=== PATIENT | male | born 1975 | race Caucasian/White ===

== ENCOUNTER 2018-02-08 15:03 | Emergency (ER) | payer OTHER ==
[~2018-02-08] VITALS: Ht 172.7 cm; Wt 94.8 kg
[~2018-02-08 15:03] MED LIST: VISTARIL 25 MG25 M1 PO
[2018-02-08] MEDS ORDERED: ARIPIPRAZOLE2 MG PO (15:13)
[2018-02-08] MEDS ORDERED: TRAZODONE HCL50 MG PO (15:13)
[2018-02-08] MEDS ORDERED: LAMICTAL100 MG PO (15:13)
[2018-02-08] MEDS ORDERED: FISH OIL 1,001000 M2 PO (15:13)
[2018-02-08 15:24] LABS: ABSOLUTE BASOPHILS 0.1 thou/uL (0.0-0.2); ABSOLUTE EOSINOPHILS 0.1 thou/uL (0.0-0.7); ABSOLUTE LYMPHOCYTES 2.1 thou/uL (0.8-5.3); ABSOLUTE MONOCYTES 0.4 thou/uL (0.0-1.2); ABSOLUTE NEUTROPHILS 3.9 thou/uL (1.6-8.1); BASOPHILS 1.1 %; EOSINOPHILS 1.2 %; HEMATOCRIT 40.9 % (42.0-52.0); HEMOGLOBIN 13.3 gm/dL (14.0-18.0); LYMPHOCYTES 31.9 %; MCH 26.3 pg (26.0-34.0); MCHC 32.5 g/dL (28.0-37.0); MCV 80.8 fL (80.0-100.0); MONOCYTES 6.1 %; MPV 8.7 fl. (7.2-11.1); NUCLEATED RBCS 0 /100WBC; PLATELET COUNT* 299 thou/uL (150-400); POLYS 59.7 %; RBC 5.06 mil/uL (4.50-6.00); WBC 6.5 thou/uL (4.0-11.0)
[2018-02-08 15:41] LABS: ANION GAP 8 mmol/L (7-16); BUN 7 mg/dL (7-18); CALCIUM 9.2 mg/dL (8.5-10.1); CHLORIDE 102 mmol/L (98-107); CO2 31 mmol/L (21-32); CREATININE 1.1 mg/dL (0.6-1.3); GLUCOSE 112 mg/dL (70-99); POTASSIUM 3.5 mmol/L (3.5-5.1); SODIUM 141 mmol/L (136-145)
[2018-02-08 15:51] LABS: ALBUMIN 4.5 g/dL (3.4-5.0); ALKALINE PHOSPHATASE 76 U/L (46-116); LIPASE 202 U/L (73-393); MAGNESIUM 2.3 mg/dL (1.8-2.4); NT-PRO BRAIN NAT PEPTIDE 16 pg/mL (<300); SGOT 23 U/L (15-37); SGPT 33 U/L (30-65); TOTAL BILIRUBIN 0.3 mg/dL (<0.1-1.0); TOTAL PROTEIN 7.6 g/dL (6.4-8.2); TROPONIN-I LEVEL <0.06 ng/mL (<0.06)
[2018-02-08] MEDS ORDERED: NORCO 5-325 TA1 EACH PO (16:07)
[2018-02-08 16:20] VITALS: BP 116/72
--- NOTE | 2018-02-09 10:24 | EKG ---
[place] [address] ELECTROCARDIOGRAM REPORT Name: MARK WALKER Room: [facility]#: [id number] Admission: 02/08/18 Attend Phys: Discharge: 02/08/18 Date of : 77 Report #: [id number] THIS REPORT FOR: //name// [facility] ED Test Date: 2018-02-08 Test Time: 15:09:32 Pat Name: MARK WALKER Department: Room: Gender: M Resident Care Spec: : 1975 Requested By: Jonatan Marrufo Order Number: [id number] MD: Jarrod García Measurements Intervals [place] Rate: 63 P: 31 PA: 155 QRS: -6 QRSD: 99 T: 25 QT: 396 QTc: 406 Interpretive Statements Sinus rhythm Baseline wander in lead(s) V4 No previous ECG available for comparison Electronically Signed On 02-09-2018 10:24:34 CDT by Jarrod García [email or web address] <ELECTRONICALLY SIGNED> By: Jarrod García MD, [facility] 02/09/18 1024 [id number] 1509 Jarrod García MD, FACC /EPI
== END 2018-02-08 16:21 | disposition home or self-care (01) ==
LOC: M.ERS 15:03
PROVIDERS: Emergency Medicine Emergency Medical Services
DX: R07.89 Other chest pain (principal); M54.2 Cervicalgia

== ENCOUNTER 2018-05-14 12:45 | Emergency (ER) | payer OTHER ==
[~2018-05-14] VITALS: Ht 172.7 cm; Wt 90.7 kg
[~2018-05-14 12:45] MED LIST changes: +ARIPIPRAZOLE2 MG PO; +FISH OIL 1,001000 M2 PO; +LAMICTAL100 MG PO; +NORCO 5-325 TA1 EACH PO; +TRAZODONE HCL50 MG PO
[2018-05-14] MEDS ORDERED: XANAX 0.25 MG0.25 MG PO (12:59)
[2018-05-14] MEDS ORDERED: NABUMETONE 750750 M1 PO (14:02)
[2018-05-14] MEDS ORDERED: ROBAXIN 750 MG750 M1 PO (14:02)
[2018-05-14 14:22] VITALS: BP 119/66
== END 2018-05-14 14:23 | disposition home or self-care (01) ==
LOC: M.ERS 12:45
DX: S16.1XXA Strain of muscle, fascia and tendon at neck level, initial encounter (principal); S29.012A Strain of muscle and tendon of back wall of thorax, initial encounter; S20.212A Contusion of left front wall of thorax, initial encounter; S20.211A Contusion of right front wall of thorax, initial encounter; S50.02XA Contusion of left elbow, initial encounter; Z98.890 Other specified postprocedural states; W01.0XXA Fall on same level from slipping, tripping and stumbling without subsequent striking against object, initial encounter; Y93.89 Activity, other specified; Y92.89 Other specified places as the place of occurrence of the external cause; Y99.8 Other external cause status